=== PATIENT | male | born 2000 | race Caucasian/White ===

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

== ENCOUNTER 2022-07-01 14:20 | Outpatient (CLI) | payer OTHER, SELFPAY ==
--- NOTE | 2022-07-01 14:32 | XR_ITS ---
WS: [id number] Chest 2 views, 07/01/2022 Clinical Data: sternal pain and right posterior rib pain, sob and cough Comparison: None. Findings: No nodules, masses or effusions are seen. The heart is normal. The pulmonary vascularity is not increased. No pneumonia or pneumothorax is seen. XR/XR chest 2V* [id number] Impression: Negative chest.
== END 2022-07-01 14:21 | disposition home or self-care (01) ==
LOC: RAD 14:25
PROVIDERS: PCP Family Medicine; Visit Provider Clinical Nurse Specialist Adult Health
DX: M94.0 Chondrocostal junction syndrome [Tietze] (principal)
CPT/HCPCS: 71046